=== PATIENT | male | born 1940 | race Caucasian/White ===

== ENCOUNTER → 2020-11-16 | Outpatient (CLI) | payer OTHER | LOC: M.ULTRA 10:49 | PROVIDERS: ATTEND Internal Medicine | DX: I65.23 Occlusion and stenosis of bilateral carotid arteries (principal) ==

== ENCOUNTER → 2021-01-11 | Outpatient (CLI) | payer OTHER | LOC: M.CT 08:48 | PROVIDERS: ATTEND Internal Medicine | DX: Z13.6 Encounter for screening for cardiovascular disorders (principal) ==

== ENCOUNTER → 2021-01-25 | Outpatient (CLI) | payer OTHER ==
--- NOTE | 2021-01-25 15:48 | CARDNUC ---
[place] [address] CARDIAC NUCLEAR IMAGING REPORT Name: HALIE MUÑOZ Room: [facility]#: [id number] Admission: 01/25/21 Attend Phys: Fransisco Alatorre MD Discharge: Date of : 38 Date of Service: 01/25/21 1548 Report #: [id number] THIS REPORT FOR: cc: Reina Stewart MD, Lin W. MD Liston, Michael J. MD [facility] ~ APPROVED REPORT Study performed: 01/25/2021 14:05:43 Exam: Nuclear Stress Test Indication: Abnormal EKG Patient Location: Out-Patient Stress Tech: BARNEY SILVA Stress Nurse: Cynthia Yates RN NM Tech:VINAY PopTCB Ht: 5 ft 5 in Wt: 168 lbs BSA: 1.84 m2 BMI: 27.95 Medical History Medical History: Hyperlipidemia Medications: NO CARDIAC MEDS Allergies: No known drug allergies Cardiac Risk Factors: Age, Hyperlipidemia, Tobacco History (Former) Exercise History: Indeterminate Stress Test Details Stress Test: Pharmacologic stress testing performed using 0.4 mg of regadenoson per 5 mL given IV over 10 seconds. Reason for pharmacologic stress test: physical limitation. HR Resting HR: 71 bpm Max Heart Rate (APMHR): 139 bpm Max HR Achieved: 90 bpm Target HR (85% APMHR): 118 bpm % of APMHR: 64 Recovery HR: 94 bpm BP Resting BP: 132/80 mmHg Max BP: 93/67 [place] [address] CARDIAC NUCLEAR IMAGING REPORT Name: TONIHALIE Room: [facility]#: [id number] Admission: 01/25/21 Attend Phys: Fransisco Alatorre MD Discharge: Date of : 38 Date of Service: 01/25/21 1548 Report #: [id number] Resting ECG: Sinus Rhythm, RBBB Stress ECG: , Sinus Rhythm, RBBB ST Change: None Arrhythmia: None Recovery ECG: Sinus Rhythm, RBBB Recovery ST Change: None Recovery Arrhythmia: None Clinical Reason for Termination: Completed protocol The patient tolerated Lexiscan infusion without cardiac symptoms. Nurse Comments PT TOO FRAILTO SAFELY WALK ON TREADMILL Stress ECG Conclusion The baseline twelve-lead EKG shows sinus rhythm with right bundle branch block. EKGs obtained during and post Lexiscan infusion show sinus rhythm with no significant ST segment changes when compared to baseline. There were no stress-induced arrhythmias. NM EXAM: Myocardial Perfusion REST/STRESS Imaging Protocol: Rest Tc-99m/Stress Tc-99m 1 day Resting Data Rest SPECT myocardial perfusion imaging was performed in supine position 30 minutes following the intravenous injection of 10.6 mCi of Tc-99m Sestamibi. Time of rest injection: 1305 Date: 01/25/2021 The images were gated to evaluate regional wall motion and calculate left ventricular ejection fraction. Administration Route: IV Pharmacologic Stress Pharmacologic stress test was performed by injecting Regadenoson 0.4 mg IV push followed by the intravenous injection of 30.6 mCi of Tc-99m Sestamibi. Time of stress injection: 1420 Date: 01/25/2021 Administration Route: IV Gated Stress SPECT was performed 40 minutes after stress injection. The images were gated to evaluate regional wall motion and calculate left ventricular ejection fraction. [place] [address] CARDIAC NUCLEAR IMAGING REPORT Name: HALIE MUÑOZ Room: [facility]#: [id number] Admission: 01/25/21 Attend Phys: Fransisco Alatorre MD Discharge: Date of : 38 Date of Service: 01/25/21 1548 Report #: [id number] Study Quality Study: Good Artifact: Mild Diaphragmatic artifact Study Data At rest, the left ventricular ejection fraction was 62%.. Post stress, the left ventricular ejection was 66%.. TID = 0.96. Perfusion Perfusion images obtained in the supine position at rest and post Lexiscan stress show photopenia of the inferior wall that resolves completely with post-rest prone imaging consistent with diaphragmatic attenuation artifact. No other significant fixed or reversible defects were identified. Wall Motion Normal left ventricular wall motion. Normal left ventricular wall motion. Nuclear Conclusion ECG Findings: negative for ischemia Clinical Findings: negative for ischemia Nuclear Findings: negative for ischemia Exercise Capacity: not assessed Left Ventricular Function: normal Risk Study: low Perfusion study show no defect to suggest infarct or ischemia. Left ventricular systolic function appears normal on gated studies. This is a low risk study. <Conclusion> The baseline twelve-lead EKG shows sinus rhythm with right bundle branch block. EKGs obtained during and post Lexiscan infusion show sinus rhythm with no significant ST segment changes when compared to baseline. There were no stress-induced arrhythmias. <ELECTRONICALLY SIGNED> By: Alton Hodge MD, FACC 01/25/21 1548 1548 1548 Alton Hodge MD, FACC /INF
== END ==
LOC: M.NUC 01-15 16:08
PROVIDERS: ATTEND Internal Medicine Cardiovascular Disease
DX: I45.10 Unspecified right bundle-branch block (principal); R93.1 Abnormal findings on diagnostic imaging of heart and coronary circulation; E78.5 Hyperlipidemia, unspecified